=== PATIENT | female | born 1995 | race Caucasian/White ===

== ENCOUNTER 2019-05-10 18:56 | Emergency (ER) | payer SELFPAY ==
[2019-05-10] MEDS ORDERED: KETOROLAC 30 MG/ML INJ ONE (19:47)
[2019-05-10] MEDS ORDERED: dexAMETHasone 10 MG/ML VIAL ONE (19:47)
[2019-05-10] MEDS ORDERED: DIAZEPAM 5 MG TABLET ONE (19:47)
[2019-05-10 19:55] LABS: Urine Blood NEGATIVE (NEG); Urine Glucose NEGATIVE (NEG); Urine Protein NEGATIVE (NEG); Urine pH 6.5 (5.0-7.0)
--- NOTE | 2019-05-10 20:13 | ER ---
Nurse's Notes [facility] Name: Dena Rice Age: 24 yrs Sex: Female : 1995 Arrival Date: 05/10/2019 Time: 19:00 Bed 5 Private MD: Diagnosis: Muscle spasm of back;Low back pain Presentation: 05/10 19:02 Presenting complaint: Back pain after lifting boxes during move 3 days ago. Transition hb of care: patient was not received from another setting of care. Onset of symptoms was May 10, 2019. Risk Assessment: Do you want to hurt yourself or someone else? Patient reports no desire to harm self or others. Initial Sepsis Screen: Does the patient meet any 2 criteria? No. Patient's initial sepsis screen is negative. Does the patient have a suspected source of infection? No. Patient's initial sepsis screen is negative. Care prior to arrival: None. 19:02 Method Of Arrival: Ambulatory hb 19:02 Acuity: MANDO 4 hb Historical: - Allergies: 19:03 No Known Allergies; hb - Home Meds: 19:03 None [Active]; hb - PMHx: 19:03 None; hb - PSHx: 19:03 None; hb - Immunization history:: Adult Immunizations up to date. - Social history:: Smoking status: Patient/guardian denies using tobacco. - Ebola Screening: : No symptoms or risks identified at this time. Screenin:02 Abuse screen: Denies threats or abuse. Nutritional screening: On. Tuberculosis ea screening: No symptoms or risk factors identified. Fall Risk None identified. Assessment: 19:16 General: Appears in no apparent distress. Behavior is calm, cooperative, appropriate bp for age. Pain: Complains of pain in back Pain radiates to left lower back and right lower back Pain currently is 3 out of 10 on a pain scale. Neuro: Level of Consciousness is awake, alert, obeys commands, Oriented to person, place, time, situation. Respiratory: Airway is patent Respiratory effort is even, unlabored, Respiratory pattern is regular, symmetrical. Derm: Skin is pink, warm \T\ dry. Musculoskeletal: Reports pain in back. 20:38 Reassessment: Patient and/or family updated on plan of care and expected duration. Pain ea level reassessed. Patient is alert, oriented x 3, equal unlabored respirations, skin warm/dry/pink. Discharge instruction given to patient, verbalized the understanding of instruction. Pt left ED ambulatory accompanied by family, pt tolerating well Patient states feeling better. Vital Signs: 19:03 BP 138 / 92; Pulse 86; Resp 16; Temp 98.2; Pulse Ox 100% on R/A; Weight 89.81 kg; hb Height 5 ft. 5 in. (165.10 cm); Pain 3/10; 20:35 BP 131 / 71; Pulse 95; Resp 18; Temp 97.8; Pulse Ox 98% on R/A; Pain 0/10; ea 19:03 Body Mass Index 32.95 (89.81 kg, 165.10 cm) hb ED Course: 19:00 Patient arrived in ED. as 19:03 Triage completed. 19:03 Arm band placed on. 19:04 Caleb Arevalo PA is PHCP. [facility] 19:04 Dale Zaragoza MD is Attending Physician. [facility] 19:05 Patient has correct armband on for positive identification. Bed in low position. Call ea light in reach. Side rails up X2. 19:16 Narciso Cole, RN is Primary Nurse. bp 20:39 No provider procedures requiring assistance completed. Patient did not have IV access ea during this emergency room visit. Administered Medications: 19:53 Drug: Decadron 10 mg Route: IM; Site: right deltoid; ea 20:40 Follow up: Response: No adverse reaction ea 19:54 Drug: Ketorolac 30 mg Route: IM; Site: left deltoid; ea 20:41 Follow up: Response: No adverse reaction ea 19:54 Drug: Valium 5 mg Route: PO; ea 20:41 Follow up: Response: No adverse reaction; Marked relief of symptoms ea Outcome: 20:12 Discharge ordered by . [facility] 20:39 Discharged to home ambulatory, with family. ea 20:39 Condition: stable 20:39 Discharge instructions given to patient, Instructed on discharge instructions, follow up and referral plans. medication usage, Demonstrated understanding of instructions, follow-up care, medications, Prescriptions given X 1. 20:40 Patient left the ED. ea Signatures: Caleb Arevalo PA PA jmm Martinez, Amelia as Baxter, Heather, RN RN Ortiz, ShannonSHOAIB mcguire RN, ea, Brian RN RN bp Corrections: (The following items were deleted from the chart) 20:39 20:38 Reassessment: Patient and/or family updated on plan of care and expected ea duration. Pain level reassessed. Patient is alert, oriented x 3, equal unlabored respirations, skin warm/dry/pink. Patient states feeling better. ea
--- NOTE | 2019-05-10 20:13 | EDPHYS ---
Physician Documentation [facility] Name: Dena Rice Age: 24 yrs Sex: Female : 1995 Arrival Date: 05/10/2019 Time: 19:00 Bed 5 Private MD: ED Physician Dale Zaragoza HPI: 05/10 19:43 This 24 yrs old Female presents to ER via Ambulatory with complaints of Back jmm Pain, Leg Pain. 19:43 The patient presents with pain that is acute. Onset: The symptoms/episode jmm began/occurred acutely. The pain does not radiate. Associated signs and symptoms: Pertinent negatives: abdominal pain, dysuria, fever, hematuria, incontinence, numbness. This is a 24 year old female that presents to the ED with complaints of lower back pain which has been chronic for approx 1 year. Denies radiation of pain to the legs. Pain also radiates to the upper back. Denies chest pain, denies fever, denies bowel issues, denies urinary complaints. . Historical: - Allergies: 19:03 No Known Allergies; hb - Home Meds: 19:03 None [Active]; hb - PMHx: 19:03 None; hb - PSHx: 19:03 None; hb - Immunization history:: Adult Immunizations up to date. - Social history:: Smoking status: Patient/guardian denies using tobacco. - Ebola Screening: : No symptoms or risks identified at this time. ROS: 19:43 Constitutional: Negative for fever, chills, and weight loss, Cardiovascular: Negative jmm for chest pain, palpitations, and edema, Respiratory: Negative for shortness of breath, cough, wheezing, and pleuritic chest pain. 19:43 Back: Positive for pain at rest, pain with movement. 19:43 All other systems are negative. Exam: 19:43 Head/Face: atraumatic. Eyes: EOMI, no conjunctival erythema appreciated ENT: Moist jmm Mucus Membranes Neck: Trachea midline, Supple Chest/axilla: Normal chest wall appearance and motion. Cardiovascular: Regular rate and rhythm. No edema appreciated Respiratory: Normal respirations, no respiratory distress appreciated Abdomen/GI: Non distended, soft 19:43 Constitutional: The patient appears in no acute distress, alert, awake. 19:43 Back: pain, is absent, ROM is normal, muscle spasm, is appreciated in the right subscapular area. 19:43 Musculoskeletal/extremity: ROM: intact in all extremities. 19:43 Skin: Appearance: Color: normal in color. 19:43 Neuro: Orientation: is normal, Mentation: is normal, Memory: is normal. 19:43 Psych: Behavior/mood is pleasant, cooperative. Vital Signs: 19:03 BP 138 / 92; Pulse 86; Resp 16; Temp 98.2; Pulse Ox 100% on R/A; Weight 89.81 kg; hb Height 5 ft. 5 in. (165.10 cm); Pain 3/10; 20:35 BP 131 / 71; Pulse 95; Resp 18; Temp 97.8; Pulse Ox 98% on R/A; Pain 0/10; ea 19:03 Body Mass Index 32.95 (89.81 kg, 165.10 cm) hb MDM: 19:15 Patient medically screened. [facility] 20:11 Data reviewed: vital signs, nurses notes. Counseling: I had a detailed discussion with jason the patient and/or guardian regarding: the historical points, exam findings, and any diagnostic results supporting the discharge/admit diagnosis, lab results, radiology results, the need for outpatient follow up, to return to the emergency department if symptoms worsen or persist or if there are any questions or concerns that arise at home. ED course: Patient is alert and non toxic in appearance in the ED. I do not suspect cord compression or cauda equina. Symptoms alleviated in the ED. . 05/10 19:43 Order name: Urine Dipstick--Ancillary (enter results); Complete Time: 19:59 [facility] 05/10 19:43 Order name: Urine --Ancillary (enter results); Complete Time: 19:59 [facility] 05/10 19:21 Order name: Urine Dipstick-Ancillary (obtain specimen); Complete Time: 19:40 [facility] 05/10 19:21 Order name: Urine Test (obtain specimen); Complete Time: 19:40 [facility] Administered Medications: 19:53 Drug: Decadron 10 mg Route: IM; Site: right deltoid; ea 20:40 Follow up: Response: No adverse reaction ea 19:54 Drug: Ketorolac 30 mg Route: IM; Site: left deltoid; ea 20:41 Follow up: Response: No adverse reaction ea 19:54 Drug: Valium 5 mg Route: PO; ea 20:41 Follow up: Response: No adverse reaction; Marked relief of symptoms ea Disposition: 05/11 00:01 Co-signature as Attending Physician, Dale Zaragoza MD. pkmeagan Disposition: 05/10/19 20:12 Discharged to Home. Impression: Muscle spasm of back, Low back pain. - Condition is Stable. - Discharge Instructions: Back Pain, Adult, Muscle Cramps and Spasms. - Prescriptions for orphenadrine citrate 100 mg Oral Tablet Sustained Release - take 1 tablet by ORAL route 2 times per day As needed; 20 tablet. - Medication Reconciliation Form, Thank You Letter, Antibiotic Education, Prescription Opioid Use form. - Follow up: Private Physician; When: 2 - 3 days; Reason: Recheck today's complaints, Continuance of care, Re-evaluation by your physician. Signatures: Dispatcher [employer] EDMS Dale Zaragoza MD MD pkl Mickail, Joel, PA PA jmm Baxter, Heather RN Shannon Andres RN RN ea Corrections: (The following items were deleted from the chart) 05/10 20:40 20:12 05/10/2019 20:12 Discharged to Home. Impression: Muscle spasm of back; Low back ea pain. Condition is Stable. Forms are Medication Reconciliation Form, Thank You Letter, Antibiotic Education, Prescription Opioid Use. Follow up: Private Physician; When: 2 - 3 days; Reason: Recheck today's complaints, Continuance of care, Re-evaluation by your physician. jason
[2019-05-10 22:51] VITALS: BP 131/71; TEMP 97.8; O2SAT 98
== END 2019-05-10 20:40 | disposition home or self-care (01) ==
LOC: ER 18:56
DX: M62.830 Muscle spasm of back (principal)
CPT/HCPCS: 81003; 81025; 96372; 99283; J1100

== ENCOUNTER 2019-06-24 18:13 | Emergency (ER) | payer OTHER ==
--- NOTE | 2019-06-24 20:28 | EDPHYS ---
Physician Documentation [facility] Name: Dena Rice Age: 24 yrs Sex: Female : 1995 Arrival Date: 06/24/2019 Time: 18:30 Bed 13 Private MD: ED Physician Batr Sullivan HPI: 06/24 20:40 This 24 yrs old Female presents to ER via Ambulatory with complaints of snw Cough, Fever, Runny Nose, Sore Throat. 20:40 The patient or guardian reports airway noise, cough. Onset: The symptoms/episode snw began/occurred suddenly, 2 week(s) ago, and became persistent. Associated signs and symptoms: Pertinent positives: rhinorrhea, sore throat. The patient has experienced similar episodes in the past. It is unknown whether or not the patient has recently seen a physician. 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 - Social history:: Smoking status: Patient/guardian denies using tobacco. - Ebola Screening: : No symptoms or risks identified at this time. ROS: 20:29 Constitutional: Negative for fever, chills, and weight loss, Eyes: Negative for injury, snw pain, redness, and discharge. 20:29 Neck: Negative for injury, pain, and swelling, Cardiovascular: Negative for chest pain, palpitations, and edema. 20:29 Abdomen/GI: Negative for abdominal pain, nausea, vomiting, diarrhea, and constipation, Back: Negative for injury and pain, : Negative for injury, bleeding, discharge, and swelling, MS/Extremity: Negative for injury and deformity, Skin: Negative for injury, rash, and discoloration, Neuro: Negative for headache, weakness, numbness, tingling, and seizure, Psych: Negative for depression, anxiety, suicide ideation, homicidal ideation, and hallucinations. 20:29 ENT: Positive for nasal discharge, sinus congestion, sore throat. 20:29 Respiratory: Positive for cough. Exam: 20:26 Constitutional: This is a well developed, well nourished patient who is awake, alert, snw and in no acute distress. Head/Face: Normocephalic, atraumatic. Eyes: Pupils equal round and reactive to light, extra-ocular motions intact. Lids and lashes normal. Conjunctiva and sclera are non-icteric and not injected. Cornea within normal limits. Periorbital areas with no swelling, redness, or edema. Neck: Trachea midline, no thyromegaly or masses palpated, and no cervical lymphadenopathy. Supple, full range of motion without nuchal rigidity, or vertebral point tenderness. No Meningismus. Chest/axilla: Normal chest wall appearance and motion. Nontender with no deformity. No lesions are appreciated. Cardiovascular: Regular rate and rhythm with a normal S1 and S2. No gallops, murmurs, or rubs. Normal PMI, no JVD. No pulse deficits. Abdomen/GI: Soft, non-tender, with normal bowel sounds. No distension or tympany. No guarding or rebound. No evidence of tenderness throughout. Back: No spinal tenderness. No costovertebral tenderness. Full range of motion. Skin: Warm, dry with normal turgor. Normal color with no rashes, no lesions, and no evidence of cellulitis. MS/ Extremity: Pulses equal, no cyanosis. Neurovascular intact. Full, normal range of motion. Neuro: Awake and alert, GCS 15, oriented to person, place, time, and situation. Cranial nerves II-XII grossly intact. Motor strength 5/5 in all extremities. Sensory grossly intact. Cerebellar exam normal. Normal gait. Psych: Awake, alert, with orientation to person, place and time. Behavior, mood, and affect are within normal limits. 20:26 ENT: TM's: erythema, fluid levels, on the left, Nose: is normal, Mouth: is normal, Voice: is normal. 20:26 Respiratory: the patient does not display signs of respiratory distress, Respirations: normal, Breath sounds: are clear throughout, bronchitic cough. Vital Signs: 18:49 BP 148 / 97; Pulse 100; Resp 18; Temp 98; Pulse Ox 100% ; Height 5 ft. 5 in. (165.10 hb cm); Pain 2/10; 18:53 Weight 100 kg (M); ca1 20:22 BP 129 / 85; Pulse 98; Resp 16; Pulse Ox 95% on R/A; jb4 18:53 Body Mass Index 36.69 (100.00 kg, 165.10 cm) ca1 MDM: 18:54 Patient medically screened. [facility] 20:28 Data reviewed: vital signs, nurses notes. Data interpreted: Pulse oximetry: on room air snw is 95 %. Interpretation: acceptable. Counseling: I had a detailed discussion with the patient and/or guardian regarding: the historical points, exam findings, and any diagnostic results supporting the discharge/admit diagnosis, the presence of at least one elevated blood pressure reading (>120/80) during this emergency department visit, lab results, the need for outpatient follow up, to return to the emergency department if symptoms worsen or persist or if there are any questions or concerns that arise at home. Special discussion: Based on the history and exam findings, there is no indication for further emergent testing or inpatient evaluation. I discussed with the patient/guardian the need to see the primary care provider for further evaluation of the symptoms. 06/24 18:43 Order name: Flu; Complete Time: 20:03 snw 06/24 18:43 Order name: Strep; Complete Time: 20:03 snw 06/24 19:49 Order name: Throat Culture EDMS Administered Medications: No medications were administered Disposition: 06/25 06:55 Co-signature as Attending Physician, Bart Sullivan MD I agree with the assessment and [facility] plan of care. Disposition: 06/24/19 20:27 Discharged to Home. Impression: Acute bronchitis, Acute serous otitis media, left ear. - Condition is Stable. - Discharge Instructions: Acute Bronchitis, Adult, Otitis Media, Adult, Cough, Adult, Rehydration, Adult. - Prescriptions for Zyrtec 10 mg Oral Tablet - take 1 tablet by ORAL route once daily As needed; 20 tablet. Tessalon Perles 100 mg Oral Capsule - take 1 capsule by ORAL route every 8 hours As needed; 15 capsule. Zithromax Z- Emmanuel 250 mg Oral Tablet - take 1 tablet by ORAL route as directed for 5 days Day 1 - take two (2) tablets one time. Day 2, 3, 4 , 5 take one (1) tablet once daily.; 6 tablet. Prednisone 20 mg Oral Tablet - take 2 tablet by ORAL route once daily for 5 days; 10 tablet. - Work release form, Medication Reconciliation Form, Thank You Letter, Antibiotic Education, Prescription Opioid Use form. - Follow up: Private Physician; When: 2 - 3 days; Reason: Recheck today's complaints, Continuance of care, Re-evaluation by your physician. Follow up: Emergency Department; When: As needed; Reason: Worsening of condition. Signatures: Dispatcher [employer] EDBart Blackwell MD MD cha Therrien, Shelly, MILL HELPER-C MILL HELPER-Csnw Lula Jeffrey RN RN Elder Laguna RN RN jb4 Corrections: (The following items were deleted from the chart) 06/24 20:41 20:27 06/24/2019 20:27 Discharged to Home. Impression: Acute bronchitis; Acute serous jb4 otitis media, left ear. Condition is Stable. Forms are Medication Reconciliation Form, Thank You Letter, Antibiotic Education, Prescription Opioid Use. Follow up: Private Physician; When: 2 - 3 days; Reason: Recheck today's complaints, Continuance of care, Re-evaluation by your physician. Follow up: Emergency Department; When: As needed; Reason: Worsening of condition. snw
--- NOTE | 2019-06-24 20:28 | ER ---
Nurse's Notes [facility] Name: Dena Rice Age: 24 yrs Sex: Female : 1995 Arrival Date: 06/24/2019 Time: 18:30 Bed 13 Private MD: Diagnosis: Acute bronchitis;Acute serous otitis media, left ear Presentation: 06/24 18:48 Presenting complaint: Sore throat, cough, runny nose, bilateral ear pain, and fever x 2 hb days. Transition of care: patient was not received from another setting of care. Onset of symptoms was June 22, 2019. Risk Assessment: Do you want to hurt yourself or someone else? Patient reports no desire to harm self or others. Initial Sepsis Screen: Does the patient meet any 2 criteria? No. Patient's initial sepsis screen is negative. Does the patient have a suspected source of infection? No. Patient's initial sepsis screen is negative. Care prior to arrival: None. 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 - Social history:: Smoking status: Patient/guardian denies using tobacco. - Ebola Screening: : No symptoms or risks identified at this time. Screenin:00 Abuse screen: Denies threats or abuse. Nutritional screening: No deficits noted. jb4 Tuberculosis screening: No symptoms or risk factors identified. Fall Risk None identified. Assessment: 19:00 General: Appears in no apparent distress. uncomfortable, Behavior is calm, cooperative, jb4 appropriate for age. Pain: Complains of pain in throat Pain does not radiate. Pain currently is 2 out of 10 on a pain scale. Neuro: Level of Consciousness is awake, alert, obeys commands, Oriented to person, place, time, situation. Cardiovascular: Patient's skin is warm and dry. Respiratory: Reports cough that is non-productive, Airway is patent Respiratory effort is even, unlabored, Respiratory pattern is regular, symmetrical, Breath sounds are clear bilaterally. GI: No deficits noted. No signs and/or symptoms were reported involving the gastrointestinal system. : No deficits noted. No signs and/or symptoms were reported regarding the genitourinary system. EENT: Ear canal clear on right ear and left ear Throat is clear is reddened. Derm: Skin is intact, Skin is pink, warm \T\ dry. Musculoskeletal: Circulation, motion, and sensation intact. Range of motion: intact in all extremities. 20:22 Reassessment: Patient appears in no apparent distress at this time. Patient and/or jb4 family updated on plan of care and expected duration. Pain level reassessed. Patient is alert, oriented x 3, equal unlabored respirations, skin warm/dry/pink. Vital Signs: 18:49 BP 148 / 97; Pulse 100; Resp 18; Temp 98; Pulse Ox 100% ; Height 5 ft. 5 in. (165.10 hb cm); Pain 2/10; 18:53 Weight 100 kg (M); ca1 20:22 BP 129 / 85; Pulse 98; Resp 16; Pulse Ox 95% on R/A; jb4 18:53 Body Mass Index 36.69 (100.00 kg, 165.10 cm) ca1 ED Course: 18:30 Patient arrived in ED. mr 18:49 Triage completed. hb 18:49 Arm band placed on. hb 18:53 Nury Arenas FNP-C is [facility]. snw 18:53 Bart Sullivan MD is Attending Physician. snw 18:58 Elder Laguna, SHOAIB is Primary Nurse. jb4 19:08 Patient maintains SpO2 saturation greater than 95% on room air. jp3 19:08 Flu and/or RSV swab sent to lab. Strep swab sent to lab. jp3 19:16 Bed in low position. Call light in reach. Verbal reassurance given. jp3 19:16 Strep Sent. jp3 19:16 Flu Sent. jp3 19:37 No provider procedures requiring assistance completed. jb4 20:39 Patient did not have IV access during this emergency room visit. jb4 Administered Medications: No medications were administered Outcome: 20:27 Discharge ordered by . snw 20:39 Discharged to home ambulatory, with family. jb4 20:39 Condition: stable 20:39 Discharge instructions given to patient, family, Instructed on discharge instructions, follow up and referral plans. medication usage, Demonstrated understanding of instructions, follow-up care, medications, Prescriptions given X 4. 20:41 Patient left the ED. jb4 Signatures: Nury Arenas, CLIENT SUPPORT CONSULTANT-C CLIENT SUPPORT CONSULTANT-Soniaw Liliana Turk Heather, RN RN Elder Laguna RN RN jb4 Chace Fisher jp3 Cornelia Núñez RN RN ca1
[2019-06-24 23:37] VITALS: TEMP 98
[2019-06-24 23:41] VITALS: BP 129/85; O2SAT 95
== END 2019-06-24 20:41 | disposition home or self-care (01) ==
LOC: ER 18:13
DX: J20.9 Acute bronchitis, unspecified (principal); H65.02 Acute serous otitis media, left ear
CPT/HCPCS: 87070; 87081; 87804; 99284